=== PATIENT | female | born 1970 | race Caucasian/White ===

== ENCOUNTER → 2025-01-19 | Outpatient (CLI) | payer OTHER | END | disposition home or self-care (01) | LOC: RAD 10:40 | PROVIDERS: ATTEND Nurse Practitioner Family | DX: M47.814 Spondylosis without myelopathy or radiculopathy, thoracic region (principal); M46.04 Spinal enthesopathy, thoracic region; M54.6 Pain in thoracic spine | CPT/HCPCS: 72072 ==